=== PATIENT | female | born 1975 ===

== ENCOUNTER → 2017-07-08 | Outpatient (CLI) | payer OTHER ==
[~2017-07-08] MED LIST: AMOX500 PO; AMOX875 PO; Aspirin EC325 MG; CEPH500 PO; CIPR500; CODACEE120 PO; DICY20 PO; METO5A PO; Norco 5-325 Ta1 EACH PO; PROM25 PO; Prednisone20 MG PO; Pyridium100 MG; RXHYDACE PO; RXTRAM50 PO; TRAM50 PO
[2017-07-08 16:24] LABS: Albumin, Blood 3.9 g/dL (3.4-5.0); Anion Gap 9 mmol/L (6-16); Blood Urea Nitrogen 15 mg/dL (8-24); Bun/Creatinine Ratio 18.3 (12.0-20.0); CO2, Blood 25 mmol/L (21-32); Chloride, Blood 101 mmol/L (98-108); Creatinine, Blood 0.82 mg/dL (0.40-1.00); Glomerular Filtration Rate >60 (60-); Glucose, Blood 92 mg/dL (70-99); Phosphorus, Blood 2.6 mg/dL (2.5-4.9); Potassium, Blood 3.4 mmol/L (3.5-5.5); Sodium, Blood 135 mmol/L (136-145)
[2017-07-08 17:34] LABS: Creatinine, Urine Random 57.4 mg/dL (27.00-270.00); Protein, Urine Random 10.5 mg/dL (0.0-11.9)
== END | disposition home or self-care (01) ==
LOC: OLS 14:19
PROVIDERS: Internal Medicine
DX: E87.6 Hypokalemia (principal); I10 Essential (primary) hypertension; N29 Other disorders of kidney and ureter in diseases classified elsewhere
CPT/HCPCS: 36415; 80069; 82570; 83970; 84156